=== PATIENT | male | born 1960 | race Caucasian/White ===

== ENCOUNTER → 2018-03-22 | Outpatient (CLI) | payer BC | END | disposition home or self-care (01) | LOC: KCIC MRI 08:50 | DX: M17.12 Unilateral primary osteoarthritis, left knee (principal); M22.42 Chondromalacia patellae, left knee; R60.0 Localized edema | CPT/HCPCS: 73721 ==

== ENCOUNTER → 2019-03-12 | Outpatient (CLI) | payer BC ==
--- NOTE | 2019-03-12 12:13 | KCIC ---
KUB History: Calculus of the kidney Comparison: None. Findings: 2 supine AP views of the abdomen are submitted. There is a calculus in the region of the inferior left renal shadow about 0.6 cm. There is possible other small calculus more medially near expected ureteropelvic junction about 0.4 cm. There are some calcifications in the pelvis bilaterally more likely phleboliths. There is retained stool in segments of colon. Impression: 1. There are some calculi in the left abdomen which may be in the kidney and near ureteropelvic junction. Electronically signed by: Pablo Moreno MD (03/12/2019 12:09 PM) [id number]
== END | disposition home or self-care (01) ==
LOC: KCIC 11:35
PROVIDERS: ATTEND Urology
DX: N20.0 Calculus of kidney (principal); N20.1 Calculus of ureter; K56.41 Fecal impaction
CPT/HCPCS: 74018

== ENCOUNTER → 2019-04-20 | Outpatient (CLI) | payer BC ==
--- NOTE | 2019-04-20 10:18 | KCIC ---
Examination: KUB History: Renal Calculi Comparison/Correlation: 03/12/2019 frontal views of the abdomen Findings: Frontal views of the abdomen were obtained. Large quantity of stool in the colon is present and this can limit evaluation. There are 2 adjacent calculi overlying the left renal lower pole measuring 0.5 cm in total. Ovoid calcific density overlying the right L2 transverse process measuring 2 cm diameter is new in the interval. Cochlea overlying the right renal shadow are also suggested. Pelvic calcifications which appeared represent phleboliths are present. Impression: Calculi overlying the left renal shadow again seen. Density overlying the right L2 transverse process is present of indeterminate significance. This is probably outside of the expected course of the right collecting system. Correlate clinically in determining further evaluation with CT. Electronically signed by: Law Morales MD (04/20/2019 10:15 AM) [id number]
== END | disposition home or self-care (01) ==
LOC: KCIC 09:02
PROVIDERS: ATTEND Family Medicine
DX: N20.0 Calculus of kidney (principal)
CPT/HCPCS: 74018

== ENCOUNTER → 2019-10-01 | Outpatient (CLI) | payer BC ==
[~2019-10-01] MED LIST: ASPI-630 PO; BYSTOLIC10 MG PO; CRESTOR40 MG PO; GABA-585 PO; GABA300C18 PO; IBUP-1027 PO; IOHEXOL 180 MG/ML 10 ML VIAL. ONE; MULT-246 PO; SULF500T36 PO; methylPREDNISolone ACETATE 40 MG/ML VIAL. ONE; methylPREDNISolone ACETATE 80 MG/ML VIAL. ONE
--- NOTE | 2019-10-01 21:42 | PAIN ---
DATE OF SERVICE: 10/01/2019 INITIAL CONSULTATION FOR PAIN CLINIC CHIEF COMPLAINT: Neck and left upper extremity pain. HISTORY OF PRESENT ILLNESS: This is a 59-year-old male who presents with history of pain in the base of the neck and left upper extremity for about 3 months, not a result of any specific injury or accident that he is aware of. It is becoming more noticeable with reaching or lifting any weightbearing with the left arm, especially reaching up over his head with his left hand. The patient describes the pain as throbbing, radiating into the left arm, cramping, aching in the neck as well, worse at night, intermittent in intensity, but generally always present, worse as the day goes on, better in the morning. The patient reports it is fairly comfortable this morning actually. He had epidural injections in the past at outside facility also physical therapy within the last 2-3 years, chiropractic treatment as well with some acupuncture which was very helpful few months ago as well. The patient reports she is taking methocarbamol, which does decrease the pain, but only intermittently. The patient reports it awakens him from sleep about 1-3 times a night depending if she lays on her left side or not, worse with lying on the left side does not affect his bowel or bladder control or his ability to walk, but is becoming more noticeable and more problematic. The patient reports no significant symptoms on the right side. No loss of motor function, but significant fatigability of the left arm with repeated motions or weightbearing, lifting or even driving the car with his left hand. The patient did have an MRI scan of the cervical spine showing a multilevel spondylosis, most notable at C5-C6 with spinal canal narrowing, compression of the ventral thecal sac and mild deformity of the spinal cord without significant cord signal abnormality, advanced for right and moderate to advanced left, C5-C6 neural foraminal narrowing present. The patient rates his disability rating from 0-10, 10 being the worst, is a 5 with family home responsibilities, social activity, 6 with recreation, 3 with occupation, 4 with sexual behavior, 2 with self-care and 7 with life support activities. PAST MEDICAL HISTORY: Significant for hypertension, Crohn's disease, arthritis. PAST SURGICAL HISTORY: Previous tonsillectomy and bilateral eye surgeries. CURRENT MEDICATIONS: Include gabapentin, Bystolic, sulfasalazine, Crestor, daily baby aspirin, ibuprofen, and multivitamins. ALLERGIES: The patient has no known drug allergies. FAMILY HISTORY: Significant for heart disease and breast cancer. SOCIAL HISTORY: The patient drinks alcohol very minimally, does not smoke, does not use any illegal, illicit or recreational drugs. 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 REVIEW OF SYSTEMS: The patient's review of systems is positive for those items mentioned in history of present illness. All systems reviewed and otherwise negative. It is complete, full and well documented on the patient's chart. PHYSICAL EXAMINATION: VITAL SIGNS: The patient's blood pressure 143/93, pulse 50, respirations 16, temperature 97.6 degrees Fahrenheit, height is 6 feet, weight is 214 pounds. GENERAL: The patient is awake, alert, oriented, appropriate, very pleasant demeanor. HEENT: Shows normocephalic, atraumatic. Extraocular movements are intact and symmetrical. Oral cavity: Mucous membranes moist and pink. Dentition is intact. NECK: Shows anterior throat supple without palpable lymphadenopathy noted. Swallow reflex symmetrical. CHEST: Shows normal on inspection. Breath sounds clear to auscultation bilaterally. HEART: Shows S1, S2 clear. No murmurs auscultated. ABDOMEN: Soft, obese, nontender, nondistended. No palpable organomegaly is noted. No rebound or guarding demonstrated. BACK: Shows spine grossly in the midline. Normal appearing thoracic kyphosis and some minor flattening of lumbar lordotic curvature. Lumbar paraspinous muscle shows symmetrical on inspection, on palpation shows some moderate tenderness diffusely, but only diffusely without significant radiation. The patient has good rotational motion of cervical spine, both laterally as well as extension and flexion without significant increase in pain. The patient's paraspinous musculature shows symmetrical on inspection, with palpation shows some moderate tenderness diffusely in the middle and lower distribution of the cervical paraspinous musculature and into the left side of the superior medial and lateral trapezius, which shows some tenderness, but only with deeper palpation without radiation. No atrophy, hypertrophy, no trigger points are demonstrated. EXTREMITIES: The patient's upper extremities show deep tendon reflexes at 2+ in the biceps, triceps tendons. Motor exam is strong with shot fireman strength, rated at 5/5 as his bicep and tricep flexion is symmetrical. Peripheral pulses are 2+ radial distribution. No peripheral edema is noted. Upper extremities are warm and dry to touch, equal in color and appearance. Shoulder shrug is strong and intact without loss of strength on resistance as his abduction of shoulder to 90 degrees with some minor pain in the base of the neck on the left, but without radiation in the upper extremity and without loss of strength on resistance. SKIN: Shows warm and dry, good turgor. No edema. No sores, rashes or bruising throughout. IMPRESSION: 1. This is a 59-year-old male with approximate 3-month history of increasing pain, base of the neck, left upper extremity in a radicular fashion as noted. 2. Cervical MRI scan, as demonstrated. 3. Crohn's disease. 4. Hypertension. 5. Arthritis. PLAN: Options were discussed with the patient including conservative medical managements, physical therapies and interventional techniques. He would like to pursue interventional techniques. We discussed cervical epidural steroid injection using description as well as anatomical models to describe the procedure. Risks were then discussed including, but not limited to bleeding, infection, possibility of epidural hematoma, subsequent neurological compromise, dural puncture, headaches, spinal cord and/or nerve damage, side effects of steroid medication and poor results regarding pain control. The patient understands and wished to proceed. The patient will return to clinic in approximately 2 weeks for followup. She was counseled as to return appointment, activity level and side effects to be aware of. DIAGNOSES: Cervical radiculopathy with cervical degenerative disk disease and cervical spondylosis. PROCEDURE: Cervical epidural steroid injection, translaminar approach C6-C7 level using C-arm fluoroscopic guidance under sterile prep and drape using local anesthetic. MEDICATION INJECTED: A total of 120 mg of Depo-Medrol plus 5 mL of preservative-free normal saline and 2 mL of contrast. CONDITION AT DISCHARGE: Stable. The patient tolerated the procedure well, had no complications. ELVIRA FARRELL MD DR: MARK/anastasia JOB#: [id number] / [id number] EVI Young MD
== END ==
LOC: PNCL 09:00
PROVIDERS: ATTEND Anesthesiology
DX: M50.123 Cervical disc disorder at C6-C7 level with radiculopathy (principal); M47.812 Spondylosis without myelopathy or radiculopathy, cervical region; I10 Essential (primary) hypertension; K50.90 Crohn's disease, unspecified, without complications; Z87.39 Personal history of other diseases of the musculoskeletal system and connective tissue; Z98.890 Other specified postprocedural states; Z72.89 Other problems related to lifestyle
CPT/HCPCS: 62321; J1030; J1040; Q9965

== ENCOUNTER → 2019-10-15 | Outpatient (CLI) | payer BC ==
--- NOTE | 2019-10-15 14:36 | PAIN ---
DATE OF SERVICE: 10/15/2019 PROGRESS NOTE FOR PAIN CLINIC DIAGNOSES: Cervical radiculopathy with cervical degenerative disk disease and cervical spondylosis. HISTORY OF PRESENT ILLNESS: The patient is a 59-year-old male who returns for followup status post cervical epidural steroid injection x 1. The patient reports about 90% improvement initially and still doing much better with pain in the neck and the upper extremities, especially his left arm. The patient reports still some pain with raising his arm over his head on the left side, but only very minimal. The patient reports some increased his activity, both at work and at home, doing distance walking, greater household activities, traveling with greater ease and comfort as well. The patient reports the pain is a 2 on a scale of 10 at all times, average, worst and least over the past week and is a 2 today. The patient reports dull and tight left shoulder, cramping pain radiating to the left upper extremity, but only very much reduced since originally. The patient reports no new motor or sensory deficits, no new changes. Sleeping well at night. PHYSICAL EXAMINATION: VITAL SIGNS: The patient's blood pressure 117/87, pulse 53, respirations 16, temperature 97.7 degrees Fahrenheit, weight is 209 pounds. GENERAL: The patient is awake, alert, oriented, appropriate, very pleasant in demeanor. HEENT: Shows normocephalic, atraumatic. The patient is wearing eyeglasses. Extraocular movements are intact and symmetrical. Oral cavity: Mucous membranes moist and pink. NECK: Shows anterior throat supple. CHEST: Shows normal on inspection. Breath sounds are clear bilaterally. HEART: Shows S1, S2 clear. ABDOMEN: Soft, nontender, nondistended. BACK: Shows spine grossly in the midline. Normal-appearing cervical lordotic curvature, thoracic kyphotic curvature and some minor flattening of lumbar lordotic curvature. Cervical paraspinous muscle shows symmetrical on inspection, on palpation shows some mild tenderness diffusely in the low cervical distribution, but only diffusely, more on the left than the right, without asymmetry, without atrophy, hypertrophy, no trigger points. The patient has full rotational motion of cervical spine, both laterally greater than 45 degrees, closer to 90 degrees as well as full extension, full forward flexion without difficulty or pain reported. EXTREMITIES: Upper extremities show deep tendon reflexes 2+ in the biceps, triceps tendons. Motor exam is strong with production control coordinator strength rated at 5/5. Bicep and tricep flexion 5/5 and equal bilaterally. Peripheral pulses are 2+ radial distribution. No peripheral edema in the upper extremities. Shoulder shrug is strong and intact without loss of strength on resistance bilaterally. Options were discussed with the patient. The patient's old chart was reviewed as his current medication regimen updated. Current review of systems updated today as well. We will proceed with a second in the series of cervical epidural steroid injection today with fluoroscopic guidance. Risks were again discussed including, but not limited to bleeding, infection, possibility of epidural hematoma, subsequent neurological compromise, dural puncture, headaches, spinal cord and/or nerve damage, side effects of steroid medication and poor results regarding pain control. The patient understands and wished to proceed. The patient will return to the clinic in approximately 2 weeks for followup. He was counseled as to return appointment, activity level and side effects to be aware of. DIAGNOSES: Cervical radiculopathy with cervical degenerative disk disease and cervical spondylosis. PROCEDURE: Cervical epidural steroid injection, translaminar approach C6-C7 level using C-arm fluoroscopic guidance under sterile prep and drape using local anesthetic. MEDICATION INJECTED: A total of 120 mg Depo-Medrol plus 5 mL of preservative-free normal saline and 2 mL of contrast. CONDITION AT DISCHARGE: Stable. The patient tolerated the procedure well, had no complications. ELVIRA FARRELL MD DR: MARK/anastasia JOB#: [id number] / [id number]
== END ==
LOC: PNCL 08:44
PROVIDERS: ATTEND Anesthesiology
DX: M50.123 Cervical disc disorder at C6-C7 level with radiculopathy (principal); M47.812 Spondylosis without myelopathy or radiculopathy, cervical region
CPT/HCPCS: 62321; J1030; J1040; Q9965

== ENCOUNTER → 2021-09-11 | Outpatient (CLI) | payer BC ==
[~2021-09-11] MED LIST changes: -IOHEXOL 180 MG/ML 10 ML VIAL. ONE; -methylPREDNISolone ACETATE 40 MG/ML VIAL. ONE; -methylPREDNISolone ACETATE 80 MG/ML VIAL. ONE
--- NOTE | 2021-09-11 13:55 | RAD ---
EXAM: Dual modality PET-CT Scan DATE: 09/11/2021 RADIOPHARMACEUTICAL: 13 mCi F-18 fluorodeoxyglucose (FDG) IV. CLINICAL HISTORY: Pulmonary nodule. COMPARISON: 08/08/2021. TECHNIQUE: Approximately 45 minutes after tracer administration, routine, attenuation-corrected Posit toney Emission Tomography (PET) images were obtained from the level of the base of the skull through th e level of the mid thighs. Tomographic reconstructions are reviewed in coronal, transaxial and sagitt al planes. Non-contrast CT imaging was performed for attenuation correction and localization purpose s only. These images do not constitute a diagnostic-quality CT examination and were not used to diag nose disease independently of the PET images. The blood glucose level was 93 mg/dL at the time of FDG administration. *One or more of the following individualized dose reduction techniques were utilized for this examina tion: 1. Automated exposure control. 2. Adjustment of the mA and/or kV according to patient size. 3. Use of iterative reconstruction technique. FINDINGS: There is no abnormal radiotracer activity associated with a 9 mm lingular nodule. There is no radiotracer avid lymph node. The CT portion of the exam demonstrates a 9 mm lingular nodule. There is also a 3 mm lingular nodule. There is no infiltrate, pleural effusion or pneumothorax. The heart is mildly enlarged. There is cor onary artery atherosclerosis. There is a dilated ascending aorta measuring 2.2 cm, a component of whi ch may be accentuated due to motion during image acquisition. There is a prominent aortopulmonary win delmer lymph node measuring 1.7 cm. This contains a small amount calcification, favoring changes due to healed granulomatous disease. There are additional nonspecific mediastinal and hilar lymph nodes. No hepatic lesion is seen. The gallbladder, pancreas, spleen and adrenal glands are unremarkable. The re is a 7 mm nonobstructing stone within the lower pole of the left kidney. There is a punctate obstr ucting stone within the superior left kidney. There are incidental extrarenal pelves. There is no hyd ronephrosis. There is no bowel obstruction. The prostate is mildly enlarged and results in deformatio n of the bladder base. The abdominal aorta is normal in caliber. There are nonspecific mesenteric and retroperitoneal lymph nodes. The visualized portions of the brain are unremarkable. There is left posterior ethmoid sinus mucosal thickening. The mastoid air cells are clear. There is no neck lymphadenopathy. There are degenerative changes involving the spine. There is a sclerotic lesion within the left anterior aspect of L4, the appearance of which favors a bone island. IMPRESSION: 1. No abnormal radiotracer activity associated with a 9 mm lingular nodule. This favors benignity. Ho wever, this nodule may be too small to characterize with PET. Follow-up with a chest CT in 3-6 months is recommended to confirm stability. 2. 3 mm lingular nodule. This is likely benign. Attention at the time of follow-up is recommended. 3. Please refer to the above report for additional findings regarding the non-PET portion of the exam . Electronically signed by: Chitra Abbott MD (09/11/2021 1:53 PM) [id number]
== END ==
LOC: PETSC 10:20
PROVIDERS: ATTEND Family Medicine
DX: R91.1 Solitary pulmonary nodule (principal); I51.7 Cardiomegaly; I25.10 Atherosclerotic heart disease of native coronary artery without angina pectoris; N20.0 Calculus of kidney; N40.0 Benign prostatic hyperplasia without lower urinary tract symptoms
CPT/HCPCS: 78815; A9552